=== PATIENT | male | born 1950 | race Caucasian/White ===

== ENCOUNTER 2024-06-05 11:11 | Outpatient (AMB) | payer MEDICARE, SELFPAY ==
--- NOTE | 2024-06-05 11:22 | A.OFFVIS_ITS ---
Vital Signs 06/05/24 11:24 Height 5 ft 3 in Weight 145 lb BMI 25.7 BP 134/73 Blood Pressure Location Lt brachial Position Sitting Respiration 15 Pulse 76 Pulse Source Pulse Oximeter Pulse Oximetry (%) 98 Oxygen Delivery Method Room Air Intake Visit Reasons: Right Lower Extremity Neuropathy Allergies morphine Adverse Reaction (Severe, Verified 06/05/24 11:26) Hallucinations Medication List - Last Reconciled 06/05/24 by Jessica Hastings LPN duloxetine 60 mg PO DAILY gabapentin 600 mg PO BEDTIME multivitamin 1 tab PO DAILY rosuvastatin (Crestor) 90 mg PO DAILY ubidecarenone-omega 3-vit E 25-150-200 mg-mg-unit (Co A-96-Grqwoxt E-Fish Oil) 1 cap PO DAILY HPI HPI Right Lower Extremity Neuropathy: Details: 73-year-old male who presents today to the office for a right lower extremities? neuropathy. He had foraminal disc herniation repair surgery in 2019 on the right side at L4- 5 that left permanent nerve distribution. He continues to have numbness and pain down the right leg first to the calf and then radiates up over the top of the foot which Is an L5 distribution. The pain is described at 8/10 in the leg. It is worse at night and relatively better in the morning after he walks around for a little bit. He is unable to sleep normally. It is described as an aching, burning sensation in his leg along with pins and needles and his toes and an aching sensation in his lower back. He is?taking?gabapentin?600?milligrams?at?night. He had an MRI scan done at [facility]. He had SIJ injection with Dr. Arredondo in 2020. Review of Systems Const All systems reviewed & are unremarkable except as noted in HPI and below Physical Exam Vital Signs: Last Vital Signs Pulse 76 06/05/24 11:24 Resp 15 06/05/24 11:24 BP 134/73 06/05/24 11:24 Pulse Ox 98 06/05/24 11:24 Oxygen Delivery Method Room Air 06/05/24 11:24 BMI result Body Mass Index 25.7 General: Appears afebrile. Alert and oriented. Mood and affect appropriate. Follows and participates in conversation appropriately. Respiratory effort is unlabored. Able to transition from sit to stand unassisted. Ambulates with bilaterally normal heel strike and toe off. Results Reviewed Results Reviewed: No imaging is available for review. Assessment & Plan Assessment & Plan (1) Lumbar radiculitis: Code(s): M54.16 - Radiculopathy, lumbar region Category: Medical (2) Post laminectomy syndrome: Code(s): M96.1 - Postlaminectomy syndrome, not elsewhere classified Category: Medical (3) Degeneration, intervertebral disc, lumbar: Code(s): M51.369 - Other intervertebral disc degeneration, lumbar region without mention of lumbar back pain or lower extremity pain Category: Medical (4) Lumbar spondylosis: Code(s): M47.816 - Spondylosis without myelopathy or radiculopathy, lumbar region Category: Medical Plan Discussed temporary/permanent peripheral nerve stimulator as possible treatment options. He will drop off his MRI scan disc, and then we will decide if we want to do L4-5 transforaminal epidural steroid injection versus a trial of temporary right L5 nerve stimulator placement. Scribed for Dr. Beck by Tommie Ramon medical center representative, on 06/05/2024. I, Dr. Beck, have personally reviewed and agree with the information entered by the scribe. Coding Level of Care Code New Pt Level 4 (12222) Diagnoses Lumbar radiculitis M54.16 Post laminectomy syndrome M96.1 Degeneration, intervertebral disc, lumbar M51.369 Lumbar spondylosis M47.816
[2024-06-05 11:24] VITALS: BP 134/73; PULSE 76; RESP 15; O2SAT 98; BMI 25.7
== END 2024-06-05 12:10 | disposition home or self-care (01) ==
PROVIDERS: PCP Family Medicine; Visit Provider Internal Medicine
DX: M54.16 Radiculopathy, lumbar region (principal); M96.1 Postlaminectomy syndrome, not elsewhere classified; M51.369 Other intervertebral disc degeneration, lumbar region without mention of lumbar back pain or lower extremity pain; M47.816 Spondylosis without myelopathy or radiculopathy, lumbar region
CPT/HCPCS: 99204

== ENCOUNTER → 2024-06-05 11:11 | Outpatient (BNVA) | payer MEDICARE, SELFPAY | PROVIDERS: PCP Family Medicine; Visit Provider Internal Medicine | DX: M47.26 Other spondylosis with radiculopathy, lumbar region (principal); M96.1 Postlaminectomy syndrome, not elsewhere classified; M51.369 Other intervertebral disc degeneration, lumbar region without mention of lumbar back pain or lower extremity pain | CPT/HCPCS: 99202 ==

== ENCOUNTER 2024-06-26 08:45 | Outpatient (AMB) | payer MEDICARE, SELFPAY ==
--- NOTE | 2024-06-26 09:02 | MHC.OFFVIS ---
Vital Signs 06/26/24 09:05 Height 5 ft 3 in Weight 145 lb BMI 25.7 BP 139/69 Blood Pressure Location Lt brachial Position Sitting Respiration 15 Pulse 76 Pulse Source Pulse Oximeter Pulse Oximetry (%) 99 Oxygen Delivery Method Room Air Intake Visit Reasons: MRI FOLLOW UP Allergies morphine Adverse Reaction (Severe, Verified 06/26/24 09:06) Hallucinations Medication List - Last Reconciled 06/26/24 by Jessica Hastings LPN duloxetine 60 mg PO DAILY gabapentin 600 mg PO BEDTIME multivitamin 1 tab PO DAILY rosuvastatin (Crestor) 90 mg PO DAILY HPI HPI MRI FOLLOW UP: Details: 73-year-old male who presents today to the office for a review of MRI scan. He reports severe stiffness in his back with occasional pain in the back. His pain is mostly localized in his leg region radiating down from the back region. Review of Systems Const All systems reviewed & are unremarkable except as noted in HPI and below Physical Exam Vital Signs: Last Vital Signs Pulse 76 06/26/24 09:05 Resp 15 06/26/24 09:05 BP 139/69 06/26/24 09:05 Pulse Ox 99 06/26/24 09:05 Oxygen Delivery Method Room Air 06/26/24 09:05 BMI result Body Mass Index 25.7 General: Appears afebrile. Alert and oriented. Mood and affect appropriate. Follows and participates in conversation appropriately. Respiratory effort is unlabored. Able to transition from sit to stand unassisted. Ambulates with bilaterally normal heel strike and toe off. Results Reviewed Results Reviewed: 05/30/24: MRI scan lumbar spine. Assessment & Plan Assessment & Plan (1) Post laminectomy syndrome: Code(s): M96.1 - Postlaminectomy syndrome, not elsewhere classified Category: Medical (2) Lumbar radiculitis: Code(s): M54.16 - Radiculopathy, lumbar region Category: Medical Plan Discussed TFESI vs. temporary nerve root and permanent spinal cord stimulation as possible treatment options for his radicular pain. We will schedule him for a right L4-5 transforaminal epidural steroid injection to start since his radicular symptoms appear to be more bothersome at this time. Discussed the risks and benefits of the procedure with the patient in detail. All questions were answered. The patient is on board with the plan. Informed the patient that insurance approval is required. We will file a PA for approval and keep him updated. Justification for interventional therapy: ? Patient with average pain > 6/10 ? Patient has exhausted conservative therapy. ? Patient unable to tolerate physical therapy due to pain. . Patient has a good understanding of their pain condition and has appropriate mental and social support. Scribed for Dr. Beck by Tommie Ramon, administrative medical director, on 06/26/2024. I, Dr. Beck, have personally reviewed and agree with the information entered by the scribe. Coding Level of Care Code Est Pt Level 4 (61706) Diagnoses Post laminectomy syndrome M96.1 Lumbar radiculitis M54.16
[2024-06-26 09:05] VITALS: BP 139/69; PULSE 76; RESP 15; O2SAT 99; BMI 25.7
== END 2024-06-26 09:45 | disposition home or self-care (01) ==
PROVIDERS: PCP Family Medicine; Visit Provider Internal Medicine
DX: M96.1 Postlaminectomy syndrome, not elsewhere classified (principal); M54.16 Radiculopathy, lumbar region
CPT/HCPCS: 99214

== ENCOUNTER → 2024-06-26 08:45 | Outpatient (BNVA) | payer MEDICARE, SELFPAY | PROVIDERS: PCP Family Medicine; Visit Provider Internal Medicine | DX: M54.16 Radiculopathy, lumbar region (principal); M96.1 Postlaminectomy syndrome, not elsewhere classified | CPT/HCPCS: 99212 ==

== ENCOUNTER 2024-07-13 07:28 | Outpatient (REF) | payer MEDICARE, SELFPAY ==
--- NOTE | ~2024-07-13 | FL_ITS ---
EXAMINATION: FLUOROSCOPY GUIDANCE FOR NEEDLE PLACEMENT CLINICAL INFORMATION: M54.16 - Radiculopathy, lumbar region COMPARISON: None available. TECHNIQUE: 2 digital images obtained in OR. No radiologist was present during exam. FINDINGS/ FL/FL guidance in treatment room IMPRESSION: AP and lateral views of the lumbar spine reveal needle positioned within the epidural space with contrast opacifying what appears to be in the epidural space. No gross bony abnormality seen however limited. FLUOROSCOPY TIME: 0.2 minutes DOSE AREA PRODUCT: 2.98 uGy-m2 (microgray-meter squared) Electronically signed by: Alphonso Jackson MD 07/24/2024 08:41 AM [facility] [place]
== END 2024-07-13 07:29 | disposition home or self-care (01) ==
LOC: CF 07:28
PROVIDERS: Visit Provider Internal Medicine
DX: M54.16 Radiculopathy, lumbar region (principal)
CPT/HCPCS: 64483; J1100; J2003; Q9967

== ENCOUNTER 2024-07-13 09:41 | Outpatient (AMB) | payer MEDICARE, SELFPAY ==
--- OUTSIDE RECORDS SUMMARY | 2024-07-13 09:43 | XMS_ITS | Data Portability ---
Author Organization [facility], , [facility] Address [address] [place] [address] Assessment No assessment recorded. Plan of Treatment Reminders Order Date Submit Date Provider Last Modified By Organization Details Last Modified Time Details Appointments None record ed. Lab None record ed. Referral None record ed. Procedures None record ed. Surgeries None record ed. Imaging None record ed. Medication Orders None record ed. Patient TargetsNo targets recorded. Patient InstructionsNo instructions recorded. Reason for Referral None Reported. Results Created Date Observation Date Name Description Value Unit Range Abnormal Flag Note LastModifiedBy Organization Detail LastModifiedTime Result Notes None recorded. Procedures Surgical History Date Name Laterality Status Provider Name and Address Organization Details Recorded Time 6 Julietai - Colonoscopy completed Haja Dumont MD [address] [place] [address], [phone] 01/24/2016 08:47:09 Imaging Results None recorded. Procedure Notes None recorded. Medical Equipment None Reported. Medications Name Sig Start Date Stop Date Status Note LastModified by Organization Details LastModified Time Afluria 9399-0653 (PF) 45 mcg (15 mcg x 3)/0.5 mL IM syringe TO BE INJECTED BY [facility] active Not Available Not Available No t Available Vitals None Recorded Social History None recorded. Functional Status None recorded. Mental Status None recorded. Family History Nothing Reported. Medical History No medical history recorded. Past Encounters Encounter ID Performer Location Encounter Start Date Encounter Closed Date Diagnosis/Indication Diagnosis SNOMED-CT Code Diagnosis ICD10 Code [id number] Haja Dumont MD [facility], [address] [address] 01/24/2016 07:19:30 01/24/2016 14:10:48 Health Concerns Section Related Observation LastModified by Organization Detai ls LastModified Time None Recorded Concern Status LastModified by Organization Details LastModified Time None Recorded Advance Directives Directive None Recorded Payers Encounter Date Sequence Insurance Name Policy Number Policy Strange Covered Member ID Strange Member ID Guarantor Name 01/24/2016 1 [facility] ([facility] Connor Ervin [id number] Connor Ervin
[2024-07-13 09:46] VITALS: BP 150/73; PULSE 61; O2SAT 100
--- NOTE | 2024-07-13 09:46 | A.OFFVIS_ITS ---
Vital Signs 07/13/24 09:46 07/13/24 10:27 BP 150/73 H 144/79 H Blood Pressure Location Rt brachial Rt brachial Position Sitting Sitting Pulse 61 82 Pulse Source Pulse Oximeter Pulse Oximeter Pulse Oximetry (%) 100 97 Oxygen Delivery Method Room Air Room Air Intake Visit Reasons: Right L4-L5 TFESI Allergies morphine Adverse Reaction (Severe, Verified 06/26/24 09:06) Hallucinations HPI HPI Right L4-L5 TFESI: Details: Patient presents for scheduled procedure. Denies any recent cough, cold, infection, fever or other significant changes in medical history since last office visit. Physical Exam Vital Signs: Last Vital Signs Pulse 61 07/13/24 09:46 BP 150/73 H 07/13/24 09:46 Pulse Ox 100 07/13/24 09:46 Oxygen Delivery Method Room Air 07/13/24 09:46 Office Procedures Details: Transforaminal epidural steroid injection, Right L4-5 After obtaining written consent, pre-procedure blood pressure and heart rate were stable and recorded in the nursing record. The patient was placed in the prone position on the fluoroscopy table. The lumbosacral area was prepped with chloraprep, allowed to dry and draped in sterile fashion. Using fluoroscopy, the skin overlying our target was anesthetized with 0.5% lidocaine. A 22 gauge 3.5 inch spinal needle was advanced to the safe triangle in the upper pole of the right L4-5 foramen. No paresthesias were elicited with needle placement and aspiration was negative for blood and CSF. Correct needle position was confirmed with approximately 1 ml contrast dye (Omnipaque 180 mg/ml) injected under real-time fluoroscopy. No evidence of vascular or intrathecal uptake was seen and there was both epidural and peripheral spread of the contrast agent. 10 mg dexamethasone plus 1 ml containing 0.5% lidocaine was slowly injected. The needle was flushed and rem isael. The skin was cleansed and a sterile bandages were applied. The patient tolerated the procedure well and no complications were encountered. Following the procedure the patient's vital signs were stable. The patient was discharged home in good condition with post-procedural instructions. Time Out: Immediately prior to the procedure, the following was verbally confirmed that there is a signed consent form and that the correct patient, planned procedure, site and side are consistent with documentation and that necessary equipment and/or blood products are available prior to the start of t he case. Complications: none EBL: <5 cc 06622 - Lumbar/Sacral Procedure code (CPT) selection complete Assessment & Plan Assessment & Plan (1) Lumbar radiculitis: Code(s): M54.16 - Radiculopathy, lumbar region Category: Medical Plan Patient is status post right L4-5 TFESI. Patient tolerated procedure well and was discharged home in stable condition with discharge instructions. All questions were answered. We will follow-up via telephone or in clinic to assess response to therapy. A follow-up appointment was made during today's visit. Orders: Orders FL guidance in treatment room Today M54.16 - Radiculopathy, lumbar region Coding Level of Care Code Procedure Only Diagnoses Lumbar radiculitis M54.16 CPT Codes Transforaminal Epidural Steroid Inj - TESI 3: 18771 - Lumbar/Sacral ([id number])
[2024-07-13 10:27] VITALS: BP 144/79; PULSE 82; O2SAT 97
== END 2024-07-13 10:28 | disposition home or self-care (01) ==
LOC: HO.PMCPRC 09:41
PROVIDERS: PCP Family Medicine; Visit Provider Internal Medicine
DX: M54.16 Radiculopathy, lumbar region (principal)
CPT/HCPCS: 64483

== ENCOUNTER → 2024-08-11 09:07 | Outpatient (BNVA) | payer MEDICARE, SELFPAY | PROVIDERS: PCP Family Medicine; Visit Provider Internal Medicine | DX: M47.816 Spondylosis without myelopathy or radiculopathy, lumbar region (principal); M96.1 Postlaminectomy syndrome, not elsewhere classified; M62.85 Dysfunction of the multifidus muscles, lumbar region | CPT/HCPCS: 99212 ==

== ENCOUNTER 2024-09-07 06:39 | Outpatient (REF) | payer MEDICARE, SELFPAY ==
--- NOTE | ~2024-09-07 | FL_ITS ---
EXAMINATION: FL GUIDANCE ONLY HISTORY: M47.816 - Spondylosis without myelopathy or radiculopathy, lumbar region COMPARISON: None available. TECHNIQUE: Fluoroscopy time: 0.1 minutes. Cumulative Dose: 1.31 mGy. DAP: 0.0122 mGym2 Images: 2. FINDINGS: Images demonstrate a needle and contrast material in the region of the right L5-S1 facet joint. FL/FL guidance in treatment room IMPRESSION: Fluoroscopy during procedure. Please see procedure report for additional information. Electronically signed by: Connor Fitch MD 09/07/2024 12:22 PM [facility]
--- OUTSIDE RECORDS SUMMARY | 2024-09-07 06:42 | XMS_ITS | Data Portability ---
Author Organization [facility], , [facility] Address [address] [place] [address] Assessment No assessment recorded. Plan of Treatment [...] and Address Organization Details Recorded Time 6 [place]al[place] - Colonoscopy completed Haja Dumont MD [address] [place] [address], [id number] 01/24/2016 08:47:09 Imaging Results None recorded. Procedure Notes None recorded. Medical Equipment None Reported. Medications Name Sig Start Date Stop Date Status Note LastModified by Organization Details LastModified Time Afluria 6300-0938 (PF) 45 mcg (15 mcg x 3)/0.5 mL IM syringe TO BE INJECTED BY [facility] active Not Available Not Available No t Available Vitals None Recorded Social History None recorded. Functional Status None recorded. Mental Status None recorded. Family History Nothing Reported. Medical History No medical history recorded. Past Encounters Encounter ID Performer Location Encounter Start Date Encounter Closed Date Diagnosis/Indication Diagnosis SNOMED-CT Code Diagnosis ICD10 Code Diagnosis Note [id number] Haja Dumont MD [facility], [address] [address] 01/24/2016 07:19:30 01/24/2016 14:10:48 Health Concerns Section Related Observation LastModified by Organization Detai ls LastModified Time None Recorded Concern Status LastModified by Organization Details LastModified Time None Recorded Advance Directives Directive None Recorded Payers Encounter Date Sequence Insurance Name Policy Number Policy Strange Covered Member ID Strange Member ID Guarantor Name 01/24/2016 1 [facility] ([facility] [place] Connor Ervin [id number] 1 Connor Ervin
== END 2024-09-07 06:40 | disposition home or self-care (01) ==
LOC: CF 06:39
PROVIDERS: Visit Provider Internal Medicine
DX: M62.85 Dysfunction of the multifidus muscles, lumbar region (principal); M47.26 Other spondylosis with radiculopathy, lumbar region; M96.1 Postlaminectomy syndrome, not elsewhere classified
CPT/HCPCS: 64555; C1778; J2003

== ENCOUNTER 2024-09-07 10:45 | Outpatient (AMB) | payer MEDICARE, SELFPAY ==
[2024-09-07 10:56] VITALS: BP 163/80; PULSE 62; O2SAT 100; BMI 26.0
--- NOTE | 2024-09-07 10:56 | MHC.OFFVIS ---
Vital Signs 09/07/24 10:56 Height 5 ft 3 in Weight 147 lb BMI 26.0 BP 163/80 H Blood Pressure Location Rt brachial Position Sitting Pulse 62 Pulse Source Pulse Oximeter Pulse Oximetry (%) 100 Oxygen Delivery Method Room Air Intake Visit Reasons: Right L4 [employer] Tech Required: No Allergies morphine Adverse Reaction (Severe, Verified 09/07/24 10:57) Hallucinations Medication List - Last Reconciled 09/07/24 by Kaye Allen, IT INFRASTRUCTURE CONSULTANT duloxetine 60 mg PO DAILY gabapentin 600 mg PO BEDTIME multivitamin 1 tab PO DAILY rosuvastatin (Crestor) 90 mg PO DAILY HPI HPI Right L4 Sprint: Details: Patient presents for scheduled procedure. Denies any recent cough, cold, infection, fever or other significant changes in medical history since last office visit. Physical Exam Vital Signs: Last Vital Signs Pulse 62 09/07/24 10:56 BP 163/80 H 09/07/24 10:56 Pulse Ox 100 09/07/24 10:56 Oxygen Delivery Method Room Air 09/07/24 10:56 BMI result Body Mass Index 26.0 Office Procedures Details: Lumbar Medial Branch Nerve Stimulation Lead Placement, SPR (Sprint) System, Right L4 ? After the risks, benefits and alternatives were discussed with the patient and informed consent was obtained, patient was placed in the prone position and padded to foster comfort. The skin overlying the lumbosacral spine was prepped and draped in sterile fashion. Fluoroscopy was used to identify the spinous process and lamina in the center of the patient?s region of pain. After identifying and marking the intended target along the course of the medial branch nerve, the skin around the planned entry point and the subcutaneous tissues were injected with lidocaine 1%. An introducer needle and stimulating probe were assembled, inserted and advanced along the intended course of the medial branch nerve as it traverses the lamina medial and inferior to the zygapophyseal joint, taking care to maintain the proper depth of insertion as the introducer is advanced under fluoroscopic guidance. The introducer needle was delivered to a location in proximity to the nerve. Multiple stimulation parameters were used to deliver stimulation to the target medial branch nerve in concert with stimulating at multiple positions around the nerve. Nerve target acquisition was confirmed noting generation of paresthesias in the paravertebral regions corresponding to the level being stimulated. Various electrical parameter combinations were tested, and the lead location was adjusted (physically relocated) until the patient indicated paresthesia/muscle tension overlapping the distribution of the patient?s typical region of pain. The stimulating probe was removed from the introducer and a percutaneous lead was guided through the needle and delivered to a location in similar proximity to the nerve. Final location was verified with electrical stimulation and documented with fluoroscopy. The introducer needle was removed, and the exposed end of the percutaneous lead was attached to an external stimulator unit. Various electrical parameter combinations were again tested until the patient indicated paresthesia or muscle tension overlapping the distribution of the patient?s typical region of pain. After confirming that lead impedance was in the normal range, the external unit was detached, the needle was removed, and the lead was anchored at the skin. The lead was threaded into the connector block and electrical continuity and desired patient response was confirmed. The connector block was attached to the external stimulator unit. The site was covered with a sterile occlusive dressing. The patient was observed for stability of vital signs and comfort. Sprint PNS Device: Sprint PNS Device [id number] Percutaneous Peripheral Neuroelectrode Procedure: 41417 - Percutaneous Peripheral Neuroelectrode Procedure code (CPT) selection complete Office Meds lidocaine HCl 10 mg/mL (1 %) injection solution Performing Provider: Hanna Schaeffer APRN, CNP Performing Location: [facility] Administered by: Jessica Hastings LPN on 09/07/24 11:19 Dose Route Admin Location Dispensed Lot Number Expiration Date [facility] Pres[employer] Teacher[employer] Assistant 1 mL subcut 5 mL Assessment & Plan Assessment & Plan (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 Patient tolerated procedure well and was discharged home in stable condition with discharge instructions. All questions were answered. Plan for 12 hours of motor stimulation at 12 hertz per day and 12 hours of sensory stimulation at 100 hertz per day to help treat both the axial low back as well as the radicular components of his pain. Orders: Orders FL guidance in treatment room Today M47.816 - Spondylosis without myelopathy or radiculopathy, lumbar region AMB Sprint PNS Today M47.816 - Spondylosis without myelopathy or radiculopathy, lumbar region Coding Level of Care Code Procedure Only Diagnoses Dysfunction of the multifidus muscle of lumbar region M62.85 Lumbar spondylosis M47.816 Post laminectomy syndrome M96.1 Lumbar radiculitis M54.16 CPT Codes Sprint PNS - Sprint PNS Device: Sprint PNS Device ([id number]) Sprint PNS - SPRINT: 58669 - Percutaneous Peripheral Neuroelectrode ([id number]) Implantable Device Implantable Device Implantable Devices Qty Pres[employer] Teacher'S Assistant Implant Date Expiration Date Analgesic PENS system 1 [employer] 09/07/24 07/13/25
== END 2024-09-07 11:55 | disposition home or self-care (01) ==
LOC: HO.PMCPRC 10:45
PROVIDERS: PCP Family Medicine; Visit Provider Internal Medicine
DX: M62.85 Dysfunction of the multifidus muscles, lumbar region (principal); M47.816 Spondylosis without myelopathy or radiculopathy, lumbar region; M96.1 Postlaminectomy syndrome, not elsewhere classified; M54.16 Radiculopathy, lumbar region
CPT/HCPCS: 64555

== ENCOUNTER 2024-09-11 09:49 | Outpatient (AMB) | payer MEDICARE, SELFPAY ==
--- NOTE | 2024-09-11 09:51 | MHC.OFFVIS ---
Vital Signs 09/11/24 09:54 Weight 148 lb 8.081 oz BP 156/74 H Blood Pressure Location Lt brachial Position Sitting Pulse 68 Pulse Oximetry (%) 97 Oxygen Delivery Method Room Air Intake Visit Reasons: s/p Right L4 Sprint Intake Note: 5/10 pain today Allergies morphine Adverse Reaction (Severe, Verified 09/11/24 09:56) Hallucinations Medication List - Last Reconciled 09/11/24 by Wendie Lamar LPN duloxetine 60 mg PO DAILY gabapentin 600 mg PO BEDTIME multivitamin 1 tab PO DAILY rosuvastatin (Crestor) 90 mg PO DAILY HPI HPI s/p Right L4 Sprint: Details: History of Present Illness The patient is a 73-year-old male presenting with follow-up after placement of a right alforaminal branch nerve stimulator for lower back pain and right lower extremity radiculopathy. This persistent pain prompted the procedure, with the goal of alleviating discomfort. Postoperative instructions included adjusting stimulator settings to find effective relief, noting that some patients might observe pain reduction only after weeks of use. The patient currently reports some improvement in his leg pain but minimal change in back discomfort. There have been no adverse events post-implantation, such as bleeding or infection, and care has been taken to follow bandaging protocols attentively. Current pain management involves adjusting the stimulator settings for optimal relief. Pain Description - Pain onset: Chronic - Pain location: Lower back with right leg radiculopathy - Quality: Description not specified - Radiation: To the right leg - Intensity: Adjusting stimulator to 75 pulses yielded palpable sensation - Aggravating factors: None mentioned - Alleviating factors: Increased stimulator intensity, geographical adjustment possibly reducing leg pain - Interference: No specific activity interference noted, encouraged proper technique in movement tasks Physical Exam - Lead site is c/d/i Results - X-ray: Unable to precisely delineate scar tissue presence but acknowledged cartilage development Pain Management - Affect: Patient remains hopeful for improvement; no psychological distress specified - Analgesia: Currently utilizing nerve stimulator set at upper range; back pain persisting, leg pain mildly improved - Adverse Effects: None reported - Activities of Daily Living: Encouraged walking and correct posture in daily activities; no interference noted with effective techniques - Aberrant Drug Related Behaviors: None reported Physical Exam Vital Signs: Last Vital Signs Pulse 68 09/11/24 09:54 BP 156/74 H 09/11/24 09:54 Pulse Ox 97 09/11/24 09:54 Oxygen Delivery Method Room Air 09/11/24 09:54 Assessment & Plan Assessment & Plan (1) Dysfunction of the multifidus muscle of lumbar region: Code(s): M62.85 - Dysfunction of the multifidus muscles, lumbar region Category: Medical (2) Lumbar spondylosis: Code(s): M47.816 - Spondylosis without myelopathy or radiculopathy, lumbar region Category: Medical (3) Post laminectomy syndrome: Code(s): M96.1 - Postlaminectomy syndrome, not elsewhere classified Category: Medical (4) Lumbar radiculitis: Code(s): M54.16 - Radiculopathy, lumbar region Category: Medical Plan Plan We will continue to monitor the impact of the right L5 MB/nerve root stimulator over the next several weeks, as benefits may not manifest immediately for all patients. The patient is instructed to maintain appropriate stimulator settings and contact us for additional supplies if needed. He is encouraged to engage in walking and other activities with mindful posture. Follow-up is scheduled for evaluating long-term benefits and considering subsequent adjustments or possible removal. Patient was informed and verbally consented to the use of an ambient scribe for clinic note documentation during this visit. Discussion Notes During the visit, I informed the patient about the expected timeline for potential pain relief with the nerve stimulator, emphasizing the variability in response times. I discussed the possible need for additional supplies and encouraged proper posture during activities to prevent aggravation. I reiterated the aim of the stimulator to achieve pain reduction, not necessarily a sensory change with the pulses felt. We also discussed the possibility based on personal symptoms and responses that this may develop satisfactorily over the recommended timeframe. Patient Instructions - Adjust the stimulator using the prescribed settings as tolerated. - Engage in daily activities, ensuring proper posture and techniques. - Use a grabber for items to avoid unnecessary bending. - Monitor the stimulator site for any seepage or discomfort. - Contact for additional supplies if required. - Follow up as scheduled to assess progress. - Report any unusual symptoms or concerns promptly. Coding Level of Care Code Est Pt Level 3 (61804) Diagnoses Dysfunction of the multifidus muscle of lumbar region M62.85 Lumbar spondylosis M47.816 Post laminectomy syndrome M96.1 Lumbar radiculitis M54.16
[2024-09-11 09:54] VITALS: BP 156/74; PULSE 68; O2SAT 97
--- OUTSIDE RECORDS SUMMARY | 2024-09-11 11:01 | XMS_ITS | Data Portability ---
Author Organization [facility], , [facility] Address [address] [place] [address] Assessment No assessment recorded. Plan of Treatment [...] [place] - Colonoscopy completed Haja Dumont MD [address] [place] [address], [id number] 01/24/2016 08:47:09 Imaging Results None recorded. Procedure Notes None recorded. Medical Equipment None Reported. Medications Name Sig Start Date Stop Date Status Note LastModified by Organization Details LastModified Time Afluria [id number] (PF) 45 mcg (15 mcg x 3)/0.5 mL IM syringe TO BE INJECTED BY [facility] active Not Available Not Available No t Available Vitals None Recorded Social History None recorded. Functional Status None recorded. Mental Status None recorded. Family History Nothing Reported. Medical History No medical history recorded. Past Encounters Encounter ID Performer Location Encounter Start Date Encounter Closed Date Diagnosis/Indication Diagnosis SNOMED-CT Code Diagnosis ICD10 Code Diagnosis Note [id number] Haja Dumont MD [facility], [address] [address] 01/24/2016 07:19:30 01/24/2016 14:10:48 Health Concerns Section Related Observation LastModified by Organization Detai ls LastModified Time None Recorded Concern Status LastModified by Organization Details LastModified Time None Recorded Advance Directives Directive None Recorded Payers Encounter Date Sequence Insurance Name Policy Number Policy Strange Covered Member ID Strange Member ID Guarantor Name 01/24/2016 1 [facility] Connor Ervin [id number] Connor Ervin
== END 2024-09-11 10:26 | disposition home or self-care (01) ==
PROVIDERS: PCP Family Medicine; Visit Provider Internal Medicine
DX: M62.85 Dysfunction of the multifidus muscles, lumbar region (principal); M47.816 Spondylosis without myelopathy or radiculopathy, lumbar region; M96.1 Postlaminectomy syndrome, not elsewhere classified; M54.16 Radiculopathy, lumbar region
CPT/HCPCS: 99024

== ENCOUNTER → 2024-09-11 09:49 | Outpatient (BNVA) | payer MEDICARE, SELFPAY | PROVIDERS: PCP Family Medicine; Visit Provider Internal Medicine | DX: M47.816 Spondylosis without myelopathy or radiculopathy, lumbar region (principal); M54.16 Radiculopathy, lumbar region; M62.85 Dysfunction of the multifidus muscles, lumbar region; M96.1 Postlaminectomy syndrome, not elsewhere classified | CPT/HCPCS: 99212 ==

== ENCOUNTER → 2024-10-20 08:24 | Outpatient (BNVA) | payer MEDICARE, SELFPAY | PROVIDERS: PCP Family Medicine; Visit Provider Internal Medicine ==

== ENCOUNTER 2025-05-29 08:36 | Outpatient (AMB) | payer MEDICARE, SELFPAY ==
--- NOTE | 2025-05-29 08:39 | MHC.OFFVIS ---
Vital Signs 05/29/25 08:43 Height 5 ft 3 in Weight 140 lb BMI 24.8 BP 142/78 H Blood Pressure Location Rt brachial Position Sitting Respiration 16 Pulse 69 Pulse Source Pulse Oximeter Pulse Oximetry (%) 100 Oxygen Delivery Method Room Air Intake Visit Reasons: Acute Lt.Side Low back pain w/out sciatica Instrumentation Supervisor Required: No Allergies morphine Adverse Reaction (Severe, Verified 05/29/25 08:45) Hallucinations HPI Comments Details: Connor is a 74-year-old male patient with a past medical history of low back pain, seizure x1, anxiety, an evaluation of low back pain, neuropathy, and imbalance who was referred to the Neurology Clinic for evaluation of sudden worsening of his balance during a recent trip on 04/04/2025. The patient today explains that he was in [place] about 3 weeks ago and during his time there he had an attack where he had gotten off of the plane and he noticed that he had some difficulty pulling his luggage and felt a general sense of weakness. Throught his trip he felt a sense of generalized weakness and loss of balance. He noticed that his left foot was catching when he was walking. He had noticed this in the past but it was much more pronounced during his vacation. He also had some alexi horse and muscle pains to his lower extremities. He had several near falls but no actual falls. He also mentions that during the trip felt as though he had some cognitive slowing in his noticed that he seemed ?off?. He has a hard elaborating on this. During his trip, he did not experience headaches abnormal or involuntary movements that he is aware of, staring episodes, or acute/profound episodes confusion. He does mentioned that he has some ongoing difficulty with balance including some sensory loss to his lower extremities which he attributes to some chronic low back disease. He notes a constant feeling that he has a ?bunched up sock? underneath his right foot. This has been present since a back surgery many years ago. During his trip however, his balance was much more difficult than his baseline. He denies any history of migraine or any ongoing headaches or vertigo. He denies any pre-existing or related systemic symptoms such as fever, chills, GI, or upper respiratory symptoms. He does mentioned in history of seizure. In 2016, while shoveling snow, he had an episode of transient amnesia after which he laid down to rest in bed and had a witnessed tonic-clonic event. He tells me that his workup was normal and he was never placed on any antiepileptic medications. 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 His mother also notably has a history of Alzheimer's dementia. Connor himself has in the past had formal memory evaluation at which time he is told he likely has been told ADHD. Social/background: Tobacco: None Subance use: None ETOH: Rarely will drink wine but drank much more while in [facility] Sleep: Sleeps 9hrs per night. He reports that he snores. In the past has had a sleep study but is not aware of the results Hydration: He is mindful to stay hydrated Prior workup: MRI lumbar spine without contrast 04/24/2025: L3 through L4: Disc bulge and facet arthropathy at final corner right neural foraminal narrowing. There was mild left foraminal narrowing similar to the prior study. L4 through L5: There is grade 1 spondylolisthesis and postoperative changes for a right hemilaminectomy. There is left subarticular narrowing. No central canal narrowing. There was moderate bilateral neural foraminal narrowing. These findings appear similar to prior study. L5 through S1: There was a disc bulge and facet arthropathy without spinal cord or neural foraminal narrowing. [facility] Medical History (Updated 05/31/25 @ 13:56 by Kita Martinez CNP) Acute bilateral low back pain without sciatica Tripping over things Review of Systems Const All systems reviewed & are unremarkable except as noted in HPI and below Physical Exam Vital Signs: Last Vital Signs Pulse 69 05/29/25 08:43 Resp 16 05/29/25 08:43 BP 142/78 H 05/29/25 08:43 Pulse Ox 100 05/29/25 08:43 Oxygen Delivery Method Room Air 05/29/25 08:43 BMI result Body Mass Index 24.8 Const General: cooperative, healthy appearing, comfortable and no acute distress Nutritional Appearance: well nourished Orientation/consciousness: patient oriented x3 Limitations: no limitations HEENT Head: Yes normal to inspection and Yes normocephalic Eyes General: appearance normal, both eyes and all related structures Visual Dewey: normal visual dewey by confrontation Alignment and Position: alignment normal Periorbital: periorbital findings normal Eyelids: Yes eyelids normal Conjunctivae: conjunctivae normal Sclerae: sclerae normal Neuro General: patient oriented x3 and other (Positive Myerson's sign ) Cranial nerves: Yes Bilaterally intact EOM present Cognition (Neuro): normal cognition Gait exam (Neuro): Normal gait present Motor exam (neuro): Abnormal motor strength present (4/5 right hip but otherwise normal ), Tremors during motor activity present (Jaw tremor and L>R upper extremity tremor with activity only ) and Abnormal muscle tone present (Mild upper extremity rigity L>R) Sensory Exam: sensory level loss detected and Abnormal lower extremity sensory exam (Bilateral great toe vibratory sensory loss ) Deep tendon reflexes (DTR's): Right triceps reflex intensity grade: 2+, Left triceps reflex intensity grade: 2+, Rt Biceps (C5, C6): 2+, Left biceps reflex intensity grade: 2+, Right brachioradialis reflex intensity grade: 2+, Left brachioradialis reflex intensity grade: 2+, Right patellar reflex intensity grade: 2+, Left patellar reflex intensity grade: 2+, Right ankle reflex intensity grade: 4+ (Ankle clonus 2 beats) and Left ankle reflex intensity grade: 4+ (Ankle clonus 2 beats) Romberg Test: Negative Pupils: Normal pupillary reactivity/response: bilateral Psych Appearance: grossly normal Mental Status: mental status grossly normal Speech and movement: Normal speech and movement present and Clear speech present Affect: normal affect Attitude: cooperative Thought process: Normal thought process present Thought content: Normal thought content present Insight: Good insight present (Psych) Judgement: Good judgement present (Psych) Assessment & Plan Assessment & Plan (1) Imbalance: Code(s): R26.89 - Other abnormalities of gait and mobility Category: Medical (2) Cognitive changes: Code(s): R41.89 - Other symptoms and signs involving cognitive functions and awareness Category: Medical Plan Connor is a 74-year-old male patient with a past medical history of low back pain, seizure x1, anxiety, an evaluation of low back pain, neuropathy, and imbalance who was referred to the Neurology Clinic for evaluation of sudden worsening of his balance during a recent trip on 04/04/2025. According to the patient, he did have some acute worsening of pre-existing imbalance while on a recent trip in conjunction with some cognitive slowing but without any profound episodes of confusion. He denies any staring events or tonic-clonic events/other seizure activity warning signs that he is aware of. His exam does display some abnormalities including a tremor of the jaw and upper extremities, some mild rigidity worse on the left, bilateral ankle clonus, and Myerson sign. This does raise some concern for possible neurodegenerative disease. Given the abnormalities in his reflexes and imbalance, C-spine pathology can not be ruled out. He has no distinct cerebellar findings on exam. I do have some concern for possible seizure event given the acute weakness and imbalance he describes alongside some cognitive slowing. Patient is willing to do an EEG especially given his prior history of seizure. I did recommend an MRI of the brain though he wishes to hold off on this for now. We will start with an EEG and discuss further at follow-up. Other possibilities for his acute symptoms may include dehydration, transient changes in blood pressure, or viral illness -EEG Orders: Orders EEG Routine Today G93.40 - Encephalopathy, unspecified, R41.89 - Other symptoms and signs involving cognitive functions and awareness Coding Level of Care Code New Pt Level 4 (84278) Diagnoses Imbalance R26.89 Cognitive changes R41.89
[2025-05-29 08:43] VITALS: BP 142/78; PULSE 69; RESP 16; O2SAT 100; BMI 24.8
== END 2025-05-29 09:52 | disposition home or self-care (01) ==
LOC: HO.HSM 08:36
PROVIDERS: PCP Family Medicine; Visit Provider Nurse Practitioner
DX: R26.89 Other abnormalities of gait and mobility (principal); R41.89 Other symptoms and signs involving cognitive functions and awareness
CPT/HCPCS: 99204

== ENCOUNTER → 2025-05-29 08:36 | Outpatient (BNVA) | payer MEDICARE, SELFPAY | PROVIDERS: PCP Family Medicine; Visit Provider Nurse Practitioner | DX: G93.40 Encephalopathy, unspecified (principal); R41.89 Other symptoms and signs involving cognitive functions and awareness; R26.89 Other abnormalities of gait and mobility | CPT/HCPCS: 99202 ==